=== PATIENT | male | born 1950 | race Caucasian/White ===

== ENCOUNTER 2023-06-22 08:06 | Outpatient (AMB) | payer MEDICARE, MEDICAID, SELFPAY ==
--- NOTE | 2023-06-22 08:15 | A.OFFVIS_ITS ---
Intake Vital Signs 06/22/23 08:23 Height 5 ft 8 in Weight 173 lb BMI 26.3 BP 128/64 Blood Pressure Location Rt brachial Position Sitting Respiration 16 Pulse 84 Pulse Source Pulse Oximeter Pulse Oximetry (%) 96 Oxygen Delivery Method Room Air Intake Visit Reasons: E-LINUX SYSTEM ADMINISTRATOR: ? Demenia CONF Intake Note: Pt presents to the office for new patient evaluation for altered mental stated. Revenue Specialist Required: No Allergies No Known Allergies Allergy (Verified 06/22/23 08:16) HPI HPI Comments History of Present Illness Details 73y/o male with developmental delay come s here for evaluation of possible dementia.He lives chely [facility] with 24 hr staff. He is accompanied by Savage Daillo his PERSONAL COACH, Zaria Barragan staff from [facility] who help with history . ABout 6 mths ago he had some episodes of urinary incontinence ( UTI was ruled out ) which self resolved, mild change in behavior like leaving an activity , wearing pajamas etc.He is better now. He goes to a high functioning adult daycare and a very easy patient to take care of . He can dress himself, needs assistance with showers. He sleeps good. He can read and write. noticed that he is leaning to his left . MRI brain was nonfocal . [facility] Medical History Hyperlipidemia Osteopenia Major depression Coarse tremors Esophagitis Anxiety Eczema Developmental delay, borderline Cognitive disorder Extrapyramidal syndrome Family History Mother Alzheimer disease Father Lung cancer Social History Household Members: Other Alcohol intake: never Patient Tobacco Use Status: Never used Tobacco Physical Exam Vital Signs: Last Vital Signs Pulse 84 06/22/23 08:23 Resp 16 06/22/23 08:23 BP 128/64 06/22/23 08:23 Pulse Ox 96 06/22/23 08:23 Oxygen Delivery Method Room Air 06/22/23 08:23 BMI result Body Mass Index 26.3 Const General: cooperative, healthy appearing and comfortable Nutritional Appearance: average body habitus Orientation/consciousness: oriented to person Eyes Pupils: Equal, round and reactive pupils present Neuro Other: antecollis stooped Mild decreased facial expression and blink Mild postural tremors UE Increased tone R>L FFM mildly decreased foot taps mildly decreased Gait- stopped , slow small steps General: oriented to person Cranial nerves: Yes Facial sensation intact/muscles of mastication intact, Yes Equal, round and reactive pupils present, Yes Bilaterally intact EOM present, Yes Nystagmus not present and Yes Normal facial strength present Cognition (Neuro): abnormal cognition Motor exam (neuro): 5/5 motor strength present throughout Deep tendon reflexes (DTR's): Right triceps reflex intensity grade: 2+, Left triceps reflex intensity grade: 2+, Rt Biceps (C5, C6): 2+, Left biceps reflex i ntensity grade: 2+, Right brachioradialis reflex intensity grade: 2+, Left brachioradialis reflex intensity grade: 2+, Right patellar reflex intensity grade: 2+ and Left patellar reflex intensity grade: 2+ Coordination: [id number] test normal Orientation What is the (year) (season) (date) (day) (month)?: season Where are we (state) (county) (town or city) (hospital) (floor)?: town or city and hospital/clinic Registration Name of 3 unrelated objects clearly and slowly, then ask patient to repeat all 3 of them. (1st repeat determines score. Make sure they can repeat all three): object 1, object 2 and object 3 Attention & Calculation (CHOOSE ONE) Spell WORLD backwards (DLROW): 2 letters Language Show patient a wristwatch & ask what it is. Repeat for pencil.: watch and pencil Ask the patient to repeat the phrase 'No ifs, ands, or buts' after you.: correct Ask the patient to 'take a piece of paper with their right hand' 'fold paper in half' 'place paper on floor': take paper in right hand Give patient a blank piece of paper & ask to write a sentence. 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 Coding Level of Care Code New Pt Level 4 (33974) Diagnoses Extrapyramidal syndrome G25.9 Cognitive disorder F09
[2023-06-22 08:23] VITALS: BP 128/64; PULSE 84; RESP 16; O2SAT 96; BMI 26.3
== END 2023-06-22 09:04 | disposition home or self-care (01) ==
PROVIDERS: PCP Internal Medicine; Visit Provider Psychiatry & Neurology Neurology
DX: G25.9 Extrapyramidal and movement disorder, unspecified (principal); R41.89 Other symptoms and signs involving cognitive functions and awareness
CPT/HCPCS: 99204

== ENCOUNTER → 2023-06-22 08:06 | Outpatient (BNVA) | payer MEDICARE, MEDICAID, SELFPAY | PROVIDERS: PCP Internal Medicine; Visit Provider Psychiatry & Neurology Neurology | DX: G25.9 Extrapyramidal and movement disorder, unspecified (principal); F09 Unspecified mental disorder due to known physiological condition | CPT/HCPCS: 99202 ==

== ENCOUNTER 2024-06-20 07:55 | Outpatient (AMB) | payer MEDICARE, MEDICAID, SELFPAY ==
--- OUTSIDE RECORDS SUMMARY | 2024-06-20 07:58 | XMS_ITS | Continuity of Care Document ---
Author Organization [facility] Address [address] [place] [address]- Care Team Providers Care Pre Parole Counseling Aide Name Role Phone Jeremias Marina MD Primary Care Physician [phone] Encounter [facility] [place] Date(s): 05/01/24 - 05/31/24 [facility] [address] [place] [address]- Encounter Type: Triage Allergies, Adverse Reactions, Alerts No Known Medication Allergies Immunizations Given and Recorded Vaccine Date Status Refusal Reason tetanus/diphtheria/pertussis, acel(Tdap) 1 05/11/23 Given tetanus/diphtheria/pertussis, acel(Tdap) 09/08/12 Recorded [id number] 12y+ bivalent booster vax 02/01/22 Recorded influenza virus vaccine, inactivated 01/18/22 Cordell rded influenza virus vaccine, inactivated 02/13/21 Cordell rded influenza virus vaccine, inactivated 01/20/20 Cordell rded influenza virus vaccine, inactivated 02/04/19 Cordell rded influenza virus vaccine, inactivated 02/11/18 Cordell rded influenza virus vaccine, inactivated 12/24/16 Cordell rded influenza virus vaccine, inactivated 01/25/16 Cordell rded influenza virus vaccine, inactivated 01/20/15 Cordell rded influenza virus vaccine, inactivated 01/27/14 Cordell rded influenza virus vaccine, inactivated 01/25/13 Cordell rded influenza virus vaccine, inactivated 01/27/12 Cordell rded influenza virus vaccine, inactivated 01/19/11 Cordell rded influenza virus vaccine, inactivated 01/30/10 Cordell rded influenza virus vaccine, inactivated 01/15/09 Cordell rded influenza virus vaccine, inactivated 01/24/08 Cordell rded influenza virus vaccine, inactivated 02/09/07 Cordell rded influenza virus vaccine, inactivated 03/02/06 Cordell rded influenza virus vaccine, inactivated 02/24/05 Cordell rded SARS-CoV-2 (COVID-19) mRNA BNT-162b2 vac 01/27/21 Recorded SARS-CoV-2 (COVID-19) mRNA BNT-162b2 vac 05/24/20 Recorded SARS-CoV-2 (COVID-19) mRNA BNT-162b2 vac 04/29/20 Recorded zoster vaccine, inactivated 06/19/20 Recorded zoster vaccine, inactivated 03/21/20 Recorded hepatitis B adult vaccine 10/10/15 Recorded hepatitis B adult vaccine 05/27/15 Recorded hepatitis B adult vaccine 04/23/15 Recorded hepatitis B adult vaccine 03/11/09 Recorded hepatitis B adult vaccine 10/08/08 Recorded hepatitis B adult vaccine 09/07/08 Recorded hepatitis B adult vaccine 11/18/06 Recorded hepatitis B adult vaccine 06/17/06 Recorded hepatitis B adult vaccine 05/20/06 Recorded hepatitis B adult vaccine 06/25/04 Recorded hepatitis B adult vaccine 01/25/04 Recorded hepatitis B adult vaccine 12/27/03 Recorded pneumococcal 23-valent vaccine 05/27/15 Recorded pneumococcal 13-valent vaccine 05/02/14 Recorded Zoster Vaccine Live 03/04/12 Recorded tetanus-diphtheria toxoids (Td) 12/27/03 Recorded 1Result Comment: [id number] Medications acetaminophen 325 mg oral tablet 650 mg, 2, tablet, By Mouth, Every 6 hours, PRN, # 100 tablet, Refills 1, Tot. Refills 1, Maintenance, discomfort/temp above 100.5 PO, 07/23/23 5:57:00 PM EDT, Route to Pharmacy Electronically, [facility], Partial fill upon patient request if the prescription is for a schedule II opioid drug.,174, cm, 05/11/23 9:11:00 EST, Height, 75.9, kg, 05/11/23 9:11:00 EST, Dry Weight Start Date: 07/23/23 Status: Ordered Quantity: 100.0 Unit: tablet Repeat number: 2 atorvastatin 20 mg oral tablet 1 tablet, By Mouth, Daily at bedtime, for cholesterol., # 30 Unknown, 11 Refills, Maintenance, 12/17/23 2:45:00 PM EDT, [facility], 178, cm, 12/15/23 11:02:00 EDT, Height, 75, kg, 11/21/23 15:43:00 EDT, Dry Weight Start Date: 12/17/23 Status: Ordered Quantity: 30.0 Unit: Unknown Repeat number: 12 bacitracin topical 500 u/gm ointment See Instructions, Apply thin layer topically to affected area every 12 hours as needed for superficial breaks in the skin. Notify HCP if no improvement in 3 days, # 30 Gm, 0 Refills, Maintenance, 02/25/24 1:41:00 PM EST, Ointment, [facility], Partial fill upon patient request if the prescription is for a schedule II opioid drug., Apply thin layer topically to affected area every 12 hours asneeded for superficial breaks in the skin. Notify HCP if no improvement in 3 days, 178, cm, 02/23/24 9:01:00 EST, Height, 75, kg, 11/21/23 15:43:00 EDT, Dry Weight Start Date: 02/25/24 Status: Ordered Quantity: 30.0 Unit: g Repeat number: 1 bisacodyl 10 mg rectal suppository See Instructions, Unwrap & insert 1 suppository (10mg) rectally as needed on the 4th day ofno bowel movement (for constipation), # 12 Unknown, 3 Refills, Maintenance, 03/12/23 1:38:00 PM EST, [facility], 174, cm, 12/08/22 11:04:00 EDT, Height, 81.1, kg, 06/02/22 8:34:00 EST, Dry Weight Start Date: 03/12/23 Status: Ordered Quantity: 12.0 Unit: Unknown Repeat number: 1 calcium-vitamin D 600 mg-400 intl units oral tablet 1 tablet, By Mouth, 2 times a day, for osteopenia., # 60 Unknown, 11 Refills, Maintenance, 12/17/23 2:45:00 PM EDT, [facility], 30, 1 tablet By Mouth 2 times a day,Instr:for osteopenia., 178, cm, 12/15/23 11:02:00 EDT, Height, 75, kg, 11/21/23 15:43:00 EDT, Dry Weight Start Date: 12/17/23 Status: Ordered Quantity: 60.0 Unit: Unknown Repeat number: 12 carbamide peroxide 6.5% otic solution See Instructions, 4 drops prn BID x5d for excessive earwax, # 30 mL, 11 Refills, Maintenance, 03/02/24 2:12:00 PM EST, Otic Solution, [facility], Partial fill upon patient request if the prescription is for a schedule II opioid drug., 4 drops prn BID x5d for excessive earwax, 178, cm, 02/23/24 9:01:00 EST, Height, 75, kg, 11/21/23 15:43:00 EDT, Dry Weight Start Date: 03/02/24 Status: Ordered Quantity: 30.0 Unit: mL Repeat number: 12 Cogentin Tablet 0.5 mg, By Mouth, Daily at bedtime, Refills 0, Maintenance, 12/20/17 3:30:05 PM EDT Start Date: 12/20/17 Status: Ordered Repeat number: 1 docusate sodium 100 mg oral capsule 1 capsule, By Mouth, 2 times a day, hold for loose stools (for stool softener), # 60 Unknown, 11 Refills, Maintenance, 12/17/23 2:45:00 PM EDT, [facility], 178, cm, 12/15/23 11:02:00 EDT, Height, 75, kg, 11/21/23 15:43:00 EDT, Dry Weight Start Date: 12/17/23 Status: Ordered Quantity: 60.0 Unit: Unknown Repeat number: 12 glycerin/petrolatum/phenylephrine/pramoxine 14.4%-15%-0.25%-1% rectal cream See Instructions, Apply small amount rectally three times daily as needed for hemorrhoids, # 28 Unknown, 0 Refills, Maintenance, 03/12/23 1:38:00 PM EST, [facility], 28, Apply small amount rectally three times daily as needed for hemorrhoids, 174, cm, 12/08/22 11:04:00 EDT, Height, 81.1, kg,06/02/22 8:34:00 EST, Dry Weight Start Date: 03/12/23 Status: Ordered Quantity: 28.0 Unit: Unknown Repeat number: 1 guaiFENesin 100 mg/5 mL oral liquid See Instructions, Give 10ml (200mg) by mouth every 6 hours as needed for cough. contact hcp if cough persists longer than 3 days. not to exceed 4 doses/24 hours, # 120 Unknown, 11 Refills, Maintenance, 02/25/24 1:41:00 PM EST, [facility], 178, cm, 02/23/24 9:01:00 EST, Height, 75, kg, 11/21/23 15:43:00 EDT, Dry Weight Start Date: 02/25/24 Status: Ordered Quantity: 120.0 Unit: Unknown Repeat number: 12 hydrocortisone 1% topical cream See Instructions, Apply thin layer topically to affected facial areas twice daily (every 12 hours) as needed for dry patches. notify hcp if no improvement in 1 week, # 28 Unknown, 5 Refills, Maintenance, 03/12/23 1:38:00 PM EST, [facility], 28, Apply thin layer topically to affected facial areas twice daily (every 12 hours) as needed for dry patches. notify hcp if no improvement in 1 week,174, cm, 12/08/22 11:04:00 EDT, Height, 81.1, kg, 06/02/22 8:34:00 EST, Dry Weight Start Date: 03/12/23 Status: Ordered Quantity: 28.0 Unit: Unknown Repeat number: 1 Milk of Magnesia 8% oral suspension See Instructions, 30ml PO prn on 3rd day of no bowel movement, # 360 mL, 3 Refills, Maintenance, 12/14/23 10:15:00 PM EDT, Suspension, [facility], Partial fill upon patient request if the prescription is for a schedule II opioid drug., 178, cm, 11/21/23 15:43:00 EDT, Height, 75, kg, 11/21/23 15:43:00 EDT, Dry Weight Start Date: 12/14/23 Status: Ordered Quantity: 360.0 Unit: mL Repeat number: 4 mometasone 0.1% topical cream See Instructions, Apply thin layer topically to affected areas of red patches twice daily (every 12hours) as needed for dry skin/eczema. do not apply to face. use before triamcinolone, # 45 Unknown,11 Refills, Maintenance, 02/25/24 1:41:00 PM EST, [facility], 30, Apply thin layer topically to affected areas of red patches twice daily (every 12 hours) as needed for dry skin/eczema. do not a pply to face. use before triamcinolone, 178, cm, 02/23/24 9:01:00 EST, Height, 75, kg, 11/21/23 15:43:00 EDT, Dry Weight Start Date: 02/25/24 Status: Ordered Quantity: 45.0 Unit: Unknown Repeat number: 12 Mylanta Maximum Strength oral suspension 5 mL, By Mouth, 4 times a day, PRN as needed for indigestion, Not to exceed 4 doses/24 hours, notify nursing if no relief from 4 doses, # 200 mL, 11 Refills, Maintenance, 02/25/24 1:41:00 PM EST, Suspension, [facility], Partial fill upon patient request if the prescription is for a schedule II opioid drug., 5 mL By Mouth 4 times a day,PRN:as needed for indigestion,Instr:Not to exceed 4 doses /24 hours, notify nursing if no relief from 4 doses, 178, cm, 02/23/24 9:01:00 EST, Height, 75, kg,11/21/23 15:43:00 EDT, Dry Weight Start Date: 02/25/24 Status: Ordered Quantity: 200.0 Unit: mL Repeat number: 12 omeprazole 20 mg oral enteric coated capsule 1 capsule, By Mouth, Daily in AM, for gerd., # 30 Unknown, 11 Refills, Maintenance, 12/14/23 8:45:00AM EDT, [facility], 178, cm, 11/21/23 15:43:00 EDT, Height, 75, kg, 11/21/23 15:43:00 EDT, Dry Weight Start Date: 12/14/23 Status: Ordered Quantity: 30.0 Unit: Unknown Repeat number: 12 Preparation H Cream 0 Refills, Maintenance, 12/09/21 2:20:00 PM EDT, Partial fill upon patient request if the prescription is for a schedule II opioid drug. Start Date: 12/09/21 Status: Ordered Repeat number: 1 Reguloid 400 mg oral capsule 1 capsule, By Mouth, Daily in AM, for laxative., # 30 Unknown, 11 Refills, Maintenance, 12/17/23 2:45:00 PM EDT, [facility], 178, cm, 12/15/23 11:02:00 EDT, Height, 75, kg, 11/21/23 15:43:00 EDT, Dry Weight Start Date: 12/17/23 Status: Ordered Quantity: 30.0 Unit: Unknown Repeat number: 12 Remeron 45 mg oral tablet 1 tablet = 45 mg, By Mouth, Daily at bedtime, 0 Refills, Maintenance, 12/20/17 3:29:16 PM EDT Start Date: 12/20/17 Status: Ordered Repeat number: 1 RisperDAL 0.5 mg oral tablet 0.5 mg, 1, tablet, By Mouth, 2 times a day, Refills 0, Maintenance, 12/20/17 3:29:42 PM EDT Start Date: 12/20/17 Status: Ordered Repeat number: 1 triamcinolone 0.1% topical cream See Instructions, Apply thin layer topically to affected area of red, patchy, dry skin every 12 hours as needed for eczema. do not apply on face. call hcp if no improvement in 3 days. use with mometasone., # 80 Unknown, 1 Refills, Maintenance, 02/25/24 1:41:00 PM EST, [facility], 30, Apply thin layer topically to affected area of red, patchy, dry skin every 12 hours as needed for eczema. donot apply on face. call hcp if no improvement in 3 days. use with mometasone., 178, cm, 02/23/24 9:01:00 EST, Height, 75, kg, 11/21/23 15:43:00 EDT, Dry Weight Start Date: 02/25/24 Status: Ordered Quantity: 80.0 Unit: Unknown Repeat number: 2 Problem List Condition Confirmation Course Effective Dates Status H ealth Status Informant Developmental delay Confirmed Active Eczema Confirmed Active Generalized anxiety disorder Confirmed Active History of tremor; Dr Joy, no rx needed Confirmed Active History of esophagitis Confirmed Active PPD positive, treated Confirmed Active Microscopic hematuria; seen by urology Confirmed Active Mixed hyperlipidemia Confirmed Active Osteopenia; 06/12 FRAX 7.6%/2.3% Confirmed Active Severe major depression Confirmed Active Social History Social History Type Response Smoking Status Never (less than 100 in lifetime) entered on: 12/16/21 Sex Male Sex Representation Male (finding) Patient Care team information Care Team Personnel Name: Jeremias Marina MD Position: [facility] Physician - Primary Care Member Role: PCP Address: [address] [place] [address] Telecom: Care Team Related Persons Name: LUC MICHELLE Name: ROB MARIE Insurance Providers Guarantor name: DEXTER HARDIN Health Plan Information #: 1 Payer: MEDICARE PART B OUTPT Member Number: NA Policy Number: NA Group Number: NA Health Plan Information #: 2 Payer: [facility] Member Number: NA Policy Number: NA Group Number: NA
--- OUTSIDE RECORDS SUMMARY | 2024-06-20 07:58 | XMS_ITS | Continuity of Care Document ---
Author Organization [facility] Address [address] [place] [address]- Care Team Providers Care Broadcasting Equipment Mechanic Name Role Phone Jeremias Marina MD Primary Care Physician Encounter [facility] NBR [id number] Date(s): 05/25/24 - 05/25/[address] [address]- Discharge Disposition: A-D/C Home Attending Physician: Ginette Kwok DO Admitting Physician: Ginette Kwok DO Referring Physician: Not on Staff, Referring MD Encounter Type: Disch ES Allergies, Adverse Reactions, Alerts No Known Medication Allergies Immunizations Given and Recorded Vaccine Date Status Refusal Reason tetanus/diphtheria/pertussis, acel(Tdap) 1 05/11/23 Given tetanus/diphtheria/pertussis, acel(Tdap) 09/08/12 Recorded [id number] 12y+ bivalent booster vax 02/01/22 Recorded influenza [...] 01/19/11 Cordell rded influenza virus vaccine, inactivated 10/14/10 Cordell rded influenza virus vaccine, inactivated 01/15/09 [...] tetanus-diphtheria toxoids (Td) 12/27/03 Recorded 1Result Comment: [id number] Medications acetaminophen 325 mg oral tablet 650 mg, 2, tablet, By Mouth, Every 6 hours, PRN, # 100 tablet, Refills 1, Tot. Refills 1, Maintenance, discomfort/temp above 100.5 PO, 07/23/23 5:57:00 PM EDT, Route to Pharmacy Electronically, [facility], Partial fill upon patient request [...] 11 Refills, Maintenance, 12/17/23 2:45:00 PM EDT, [facility], 178, cm, 12/15/23 11:02:00 EDT, Height, [...] Refills, Maintenance, 02/25/24 1:41:00 PM EST, Ointment, [facility], Partial fill upon patient request [...] 3 Refills, Maintenance, 03/12/23 1:38:00 PM EST, [facility], 174, cm, 12/08/22 11:04:00 EDT, Height, 81.1, kg, 06/02/22 8:34:00 EST, Dry Weight Start Date: 03/12/23 Status: Ordered Quantity: 12.0 Unit: Unknown Repeat number: 1 calcium-vitamin D 600 mg-400 intl units oral tablet 1 tablet, By Mouth, 2 times a day, for osteopenia., # 60 Unknown, 11 Refills, Maintenance, 12/17/23 2:45:00 PM EDT, [facility], 30, 1 tablet By Mouth [...] Maintenance, 03/02/24 2:12:00 PM EST, Otic Solution, [facility], Partial fill upon patient request [...] 11 Refills, Maintenance, 12/17/23 2:45:00 PM EDT, [facility], 178, cm, 12/15/23 11:02:00 EDT, Height, 75, kg, 11/21/23 15:43:00 EDT, Dry Weight Start Date: 12/17/23 Status: Ordered Quantity: 60.0 Unit: Unknown Repeat number: 12 glycerin/petrolatum/phenylephrine/pramoxine 14.4%-15%-0.25%-1% rectal cream See Instructions, Apply small amount rectally three times daily as needed for hemorrhoids, # 28 Unknown, 0 Refills, Maintenance, 03/12/23 1:38:00 PM EST, [facility], 28, Apply small amount rectally [...] 11 Refills, Maintenance, 02/25/24 1:41:00 PM EST, [facility], 178, cm, 02/23/24 9:01:00 EST, [...] 5 Refills, Maintenance, 03/12/23 1:38:00 PM EST, [facility], 28, Apply thin layer topically [...] Refills, Maintenance, 12/14/23 10:15:00 PM EDT, Suspension, [facility], Partial fill upon patient request [...] Unknown,11 Refills, Maintenance, 02/25/24 1:41:00 PM EST, [facility], 30, Apply thin layer topically [...] Refills, Maintenance, 02/25/24 1:41:00 PM EST, Suspension, [facility], Partial fill upon patient request [...] Unknown, 11 Refills, Maintenance, 12/14/23 8:45:00AM EDT, [facility], 178, cm, 11/21/23 15:43:00 EDT, Height, 75, [...] 11 Refills, Maintenance, 12/17/23 2:45:00 PM EDT, [facility], 178, cm, 12/15/23 11:02:00 EDT, Height, [...] 1 Refills, Maintenance, 02/25/24 1:41:00 PM EST, [facility], 30, Apply thin layer topically [...] Confirmed Active Severe major depression Confirmed Active Results Radiology Reports * Exam Date Time Procedure Performing Provider Status 05/25/24 3:28 PM Chest 2 Views Frontal and Lat Aj Garcia; Auth (Verified) Notes: (Chest 2 Views Frontal and Lat) Reason For Exam: Cough RESULT: Chest 2 Views Frontal and Lat Chest 2 Views Frontal and Lat Hx of Present Illness: fever, weakness noiced by staff. low O2; Reason: Cough; Clinical Question(s): Pneumonia COMPARISON: 08/19/2015 FINDINGS: LINES AND TUBES: None. LUNGS AND PLEURA: Chronic left lung volume loss with hyperinflation of the right lung, unchanged. Biapical pleural thickening/scarring similar to prior study. Normal pulmonary vascularity. No focal consolidation. No pleural effusion. No pneumothorax. HEART, MEDIASTINUM AND DAVID: Heart is normal in size. Large paraesophageal hernia is noted. BONES AND SOFT TISSUES: No acute abnormality. IMPRESSION: No x-ray findings of pneumonia. No edema or effusions. Chronic left lung volume loss and hyperinflation of the right lung. Large paraesophageal hernia. WSN: [id number] Ordering Physician: Ginette Kwok Dictated By: Santos Khoury MD Dictated Date/Time: 05/25/24 3:27 pm Reviewed By: Santos Khoury MD Signed By: Santos Khoury MD Signed Date/Time: 05/25/24 3:27 pm Transcribed By: ARCADIO Transcribed Date/Time: 05/25/24 3:26 pm Vital Signs Most recent to oldest [Reference Range]: 1 2 Height 175 cm (05/25/24 6:13 PM) 175 cm (05/25/24 2:23 PM) Weight 75.5 kg (05/25/24 6:13 PM) 75.5 kg (05/25/24 2:23 PM) Oxygen Saturation [94-100 %] 95 % (05/25/24 6:13 PM) 96 % (05/25/24 2:13 PM) Pulse Rate [55-90 bpm] 85 bpm (05/25/24 6:13 PM) 86 bpm (05/25/24 2:23 PM) Body Mass Index [18.5-24.99 kg/m2] 24.65 kg/m2 (05/25/24 6:13 PM) Blood Pressure [90-138/55-84 mm Hg] 139/ 66mm Hg *H* (05/25/24 6:13 PM) 120/55mm Hg (05/25/24 2:23 PM) Respiratory Rate [16-30 br/min] 18 br/mi n (05/25/24 6:13 PM) Temperature [96.8-100.4 DegF] 99.0 DegF (05/25/24 6:13 PM) 99.3 DegF (05/25/24 2:23 PM) Liters per Minute 2 L/min (05/25/24 2:13 PM) Mode of Delivery (Oxygen) Room air (05/25/24 6:13 PM) Room air (05/25/24 2:13 PM) Blood pressure sites Arm, left (05/25/24 6:13 PM) Arm, left (05/25/24 2:23 PM) Temperature Route Oral (05/25/24 6:13 PM) Oral (05/25/24 2:23 PM) Dry Weight 75.5 kg (05/25/24 6:13 PM) 75.5 kg (05/25/24 2:23 PM) Weight Obtained Via Patient/family state d (05/25/24 2:23 PM) Social History Social History Type Response Smoking Status Never (less than 100 in lifetime) entered on: 12/16/21 Sex Male Sex Representation Male (finding) Patient Care team information Care Team Personnel Name: Jeremias Marina MD Position: [facility] Physician - Primary Care Member Role: PCP Address: [address] [place] [address] Telecom: Care Team Related Persons Name: LUC MICHELLE Name: ROB MARIE Insurance Providers Guarantor name: DEXTER ZHANGCecy Health Plan Information #: 2 Payer: [employer] Member Number: [id number] Policy Number: NA Group Number: NA Health Plan Information #: 1 Payer: MEDICARE PART B OUTPT Member Number: [id number] Policy Number: NA Group Number: NA
--- OUTSIDE RECORDS SUMMARY | 2024-06-20 07:58 | XMS_ITS | Continuity of Care Document ---
Author Organization [facility] Address [address] [place] [address]- Care Team Providers Care Data Reporting Analyst Name Role Phone Jeremias Marina MD Primary Care Physician Encounter [facility] Date(s): 04/28/24 - 05/28/24 [facility] [address] [place] [address]- Encounter Type: Triage Allergies, Adverse Reactions, Alerts No Known Medication Allergies Immunizations Given and Recorded Vaccine Date Status Refusal Reason tetanus/diphtheria/pertussis, acel(Tdap) 1 05/11/23 Given tetanus/diphtheria/pertussis, acel(Tdap) 09/08/12 Recorded [id number] 12y+ bivalent booster vax 02/01/22 Recorded influenza [...] tetanus-diphtheria toxoids (Td) 12/27/03 Recorded 1Result Comment: [id number] Medications acetaminophen 325 mg oral tablet 650 mg, 2, tablet, By Mouth, Every 6 hours, PRN, # 100 tablet, Refills 1, Tot. Refills 1, Maintenance, discomfort/temp above 100.5 PO, 07/23/23 5:57:00 PM EDT, Route to Pharmacy Electronically, [facility], Partial fill upon patient request if the [...] Refills, Maintenance, 02/25/24 1:41:00 PM EST, Ointment, [facility], Partial fill upon patient request if the [...] 3 Refills, Maintenance, 03/12/23 1:38:00 PM EST, [facility], 174, cm, 12/08/22 11:04:00 EDT, Height, 81.1, kg, 06/02/22 8:34:00 EST, Dry Weight Start Date: 03/12/23 Status: Ordered Quantity: 12.0 Unit: Unknown Repeat number: 1 calcium-vitamin D 600 mg-400 intl units oral tablet 1 tablet, By Mouth, 2 times a day, for osteopenia., # 60 Unknown, 11 Refills, Maintenance, 12/17/23 2:45:00 PM EDT, [facility], 30, 1 tablet By Mouth [...] Maintenance, 03/02/24 2:12:00 PM EST, Otic Solution, [facility], Partial fill upon patient request [...] 11 Refills, Maintenance, 12/17/23 2:45:00 PM EDT, [facility], 178, cm, 12/15/23 11:02:00 EDT, Height, 75, kg, 11/21/23 15:43:00 EDT, Dry Weight Start Date: 12/17/23 Status: Ordered Quantity: 60.0 Unit: Unknown Repeat number: 12 glycerin/petrolatum/phenylephrine/pramoxine 14.4%-15%-0.25%-1% rectal cream See Instructions, Apply small amount rectally three times daily as needed for hemorrhoids, # 28 Unknown, 0 Refills, Maintenance, 03/12/23 1:38:00 PM EST, [facility], 28, Apply small amount rectally [...] 11 Refills, Maintenance, 02/25/24 1:41:00 PM EST, [facility], 178, cm, 02/23/24 9:01:00 EST, [...] 5 Refills, Maintenance, 03/12/23 1:38:00 PM EST, [facility], 28, Apply thin layer topically [...] Refills, Maintenance, 12/14/23 10:15:00 PM EDT, Suspension, [facility], Partial fill upon patient request if the [...] Unknown,11 Refills, Maintenance, 02/25/24 1:41:00 PM EST, [facility], 30, Apply thin layer topically [...] Refills, Maintenance, 02/25/24 1:41:00 PM EST, Suspension, [facility], Partial fill upon patient request [...] Unknown, 11 Refills, Maintenance, 12/14/23 8:45:00AM EDT, [facility], 178, cm, 11/21/23 15:43:00 EDT, [...] 1 Refills, Maintenance, 02/25/24 1:41:00 PM EST, [facility], 30, Apply thin layer topically [...] Team Personnel Name: Jeremias Marina MD Position: [facility] Physician - Primary Care Member Role: PCP Address: [address] [place] [address] Telecom: Care Team Related Persons Name: LUC MICHELLE Name: ROB MARIE Insurance Providers Guarantor name: DEXTER HARDIN Health Plan Information #: 1 Payer: MEDICARE PART B OUTPT Member Number: NA Policy Number: NA Group Number: NA Health Plan Information #: 2 [facility] Member Number: NA Policy Number: NA Group Number: NA
--- OUTSIDE RECORDS SUMMARY | 2024-06-20 07:58 | XMS_ITS | Continuity of Care Document ---
Author Organization [facility] Address [address] [place] [address]- Care Team Providers Care All Round Butcher Name Role Phone Jeremias Marina MD Primary Care Physician [phone] [id number] Date(s): 06/02/24 - 06/09/24 [facility] [address], [place] [address] Encounter Diagnosis Physical exam(Discharge Diagnosis) - 06/02/24 Anemia(Discharge Diagnosis) - 06/02/24 Change in behavior(Discharge Diagnosis) - 06/02/24 Attending Physician: Jeremias Marina MD Encounter Type: Office Visit Allergies, Adverse Reactions, Alerts No Known Medication Allergies Immunizations Given and Recorded Vaccine Date Status Refusal Reason RSV vaccine, preF A-preF B, recombinant 02/21/24 R ecorded influenza virus vaccine, inactivated 02/08/24 Cordell rded influenza virus vaccine, inactivated 01/18/22 Cordell rded [...] influenza virus vaccine, inactivated 02/24/05 Cordell rded SARS-CoV-2(COVID-19)mRNA-LNP vac([id number]) 02/08/24 Recorded tetanus/diphtheria/pertussis, acel(Tdap) 1 05/11/23 Given tetanus/diphtheria/pertussis, acel(Tdap) 09/08/12 Recorded [id number] 12y+ bivalent booster vax 02/01/22 Recorded SARS-CoV-2 (COVID-19) mRNA BNT-162b2 vac 01/27/21 Recorded [...] tetanus-diphtheria toxoids (Td) 12/27/03 Recorded 1Result Comment: [id number] Medications acetaminophen 325 mg oral tablet 650 mg, 2, tablet, By Mouth, Every 6 hours, PRN, # 100 tablet, Refills 1, Tot. Refills 1, Maintenance, discomfort/temp above 100.5 PO, 07/23/23 5:57:00 PM EDT, Route to Pharmacy Electronically, [facility], Partial fill upon patient request if the prescription is for a schedule II opioid drug.,174, cm, 05/11/23 9:11:00 EST, Height, 75.9, kg, 05/11/23 9:11:00 EST, Dry Weight Start Date: 07/23/23 Status: Ordered Quantity: 100.0 Unit: tablet Repeat number: 2 atorvastatin 20 mg oral tablet 1 tablet, By Mouth, Daily at bedtime, for cholesterol., # 30 Unknown, 11 Refills, Maintenance, 12/17/23 2:45:00 PM EDT, [facility], 178, cm, 12/15/23 11:02:00 EDT, Height, 75, [...] days, # 30 Gm, 0 Refills, Maintenance, 06/08/24 1:35:00 PM EST, Ointment, [facility], Partial fill upon patient request if the prescription is for a schedule II opioid drug., Apply thin layer topically to affected area every 12 hours asneeded for superficial breaks in the skin. Notify HCP if no improvement in 3 days, 165.2, cm, 06/02/24 9:25:00 EST, Height, 71.5, kg, 06/02/24 9:25:00 EST, Dry Weight Start Date: 06/08/24 Status: Ordered Quantity: 30.0 Unit: g Repeat number: 1 bisacodyl 10 mg rectal suppository See Instructions, Unwrap & insert 1 suppository (10mg) rectally as needed on the 4th day ofno bowel movement (for constipation), # 12 Unknown, 3 Refills, Maintenance, 03/12/23 1:38:00 PM EST, [facility], 174, cm, 12/08/22 11:04:00 EDT, Height, 81.1, kg, 06/02/22 8:34:00 EST, Dry Weight Start Date: 03/12/23 Status: Ordered Quantity: 12.0 Unit: Unknown Repeat number: 1 calcium-vitamin D 600 mg-400 intl units oral tablet 1 tablet, By Mouth, 2 times a day, for osteopenia., # 60 Unknown, 11 Refills, Maintenance, 12/17/23 2:45:00 PM EDT, [facility], 30, 1 tablet By Mouth 2 times a day,Instr:for osteopenia., 178, cm, 12/15/23 11:02:00 EDT, Height, 75, kg, 11/21/23 15:43:00 EDT, Dry Weight Start Date: 12/17/23 Status: Ordered Quantity: 60.0 Unit: Unknown Repeat number: 12 carbamide peroxide 6.5% otic solution See Instructions, 4 drops prn BID x5d for excessive earwax, # 30 mL, 11 Refills, Maintenance, 03/02/24 2:12:00 PM EST, Otic Solution, [facility], Partial fill upon patient request if the [...] 11 Refills, Maintenance, 12/17/23 2:45:00 PM EDT, [facility], 178, cm, 12/15/23 11:02:00 EDT, Height, 75, kg, 11/21/23 15:43:00 EDT, Dry Weight Start Date: 12/17/23 Status: Ordered Quantity: 60.0 Unit: Unknown Repeat number: 12 glycerin/petrolatum/phenylephrine/pramoxine 14.4%-15%-0.25%-1% rectal cream See Instructions, Apply small amount rectally three times daily as needed for hemorrhoids, # 28 Unknown, 0 Refills, Maintenance, 03/12/23 1:38:00 PM EST, [facility], 28, Apply small amount rectally three [...] 11 Refills, Maintenance, 02/25/24 1:41:00 PM EST, [facility], 178, cm, 02/23/24 9:01:00 EST, Height, [...] 5 Refills, Maintenance, 03/12/23 1:38:00 PM EST, [facility], 28, Apply thin layer topically to [...] Refills, Maintenance, 12/14/23 10:15:00 PM EDT, Suspension, [facility], Partial fill upon patient request if the [...] Unknown,11 Refills, Maintenance, 02/25/24 1:41:00 PM EST, [facility], 30, Apply thin layer topically to [...] Refills, Maintenance, 02/25/24 1:41:00 PM EST, Suspension, [facility], Partial fill upon patient request if [...] Unknown, 11 Refills, Maintenance, 12/14/23 8:45:00AM EDT, [facility], 178, cm, 11/21/23 15:43:00 EDT, Height, [...] 11 Refills, Maintenance, 12/17/23 2:45:00 PM EDT, [facility], 178, cm, 12/15/23 11:02:00 EDT, Height, [...] 1 Refills, Maintenance, 02/25/24 1:41:00 PM EST, [facility], 30, Apply thin layer topically to [...] anxiety disorder Confirmed Active History of tremor; was seen by Dr Joy, no rx needed Confirmed Active History of esophagitis Confirmed Active PPD positive, treated Confirmed Active Microscopic hematuria; seen by urology Confirmed Active Mixed hyperlipidemia Confirmed Active Osteopenia; 06/12 FRAX 7.6%/2.3% Confirmed Active Severe major depression Confirmed Active Diagnosis Diagnosis Type Effective Dates Health Status Cl inical Service Informant Anemia Discharge Diagnosis 06/02/24 Change in behavior Discharge Diagnosis 06/02/24 Physical exam Discharge Diagnosis 06/02/24 Vital Signs Most recent to oldest [Reference Range]: 1 Height 165.2 cm (06/02/24 9:25 AM) Weight 71.5 kg (06/02/24 9:25 AM) Oxygen Saturation [94-100 %] 98 % (06/02/24 9:25 AM) Pulse Rate [55-90 bpm] 81 bpm (06/02/24 9:25 AM) Body Mass Index [18.5-24.99 kg/m2] 26.2 kg/m2 *H* (06/02/24 9:25 AM) Blood Pressure [90-138/55-84 mm Hg] 122/ 60mm Hg (06/02/24 9:25 AM) Mode of Delivery (Oxygen) Room air (06/02/24 9:25 AM) Blood pressure sites Arm, right (06/02/24 9:25 AM) Dry Weight 71.5 kg (06/02/24 9:25 AM) Weight Obtained Via Standing scale (06/02/24 9:25 AM) Dry Weight Obtained Via Standing scale (06/02/24 9:25 AM) Social History Social History Type Response Smoking Status Never (less than 100 in lifetime) entered on: 12/16/21 Sex Male Sex Representation Male (finding) Note * Maria R Miranda: PERFORM Event Display: Patient Education/Instruction Authored Date: Ambulatory Adult Visit Summary [facility] [address] [place] [address] Name: DEXTER HARDIN : 1950?? Visit: 06/02/2024 09:17?? Ambulatory Visit Instructions ?? Your Care Team Primary Care Provider Jeremias Marina MD? This Visit Provider Jeremias Marina MD Your Diagnosis Anemia Change in behavior Mixed hyperlipidemia Vitals Signs Pulse Rate: 81 bpm Height: 165.2 cm Systolic Blood Pressure: 122 mm Hg Weight: 71.5 kg Diastolic Blood Pressure: 60 mm Hg Body Mass Index:??26.2 kg/m2??High Oxygen Saturation: 98 % Body surface area: 1.81 What to do next Future Orders CBC - Routine, Once, 06/02/24 10:07:00 EST, Order for Today, [facility], Blood?? Comprehensive Metabolic Panel - Routine, Once, 06/02/24 10:07:00 EST, Order for Today, [facility], Blood?? TSH - Routine, Once, 06/02/24 10:07:00 EST, Order for Today, [facility], Blood?? Vitamin B12 Level (B12 Vitamin Level) - Routine, Once, 06/02/24 10:07:00 EST, Order for Today, [facility], Blood?? Lipid Panel Non Fasting - Routine, Once, 06/02/24 10:07:00 EST, Order for Today, [facility], Blood?? Medications The list below reflects the information in our records and provided by you today along with any changes made during this visit. Please continue your medications until treatment is completed or stopped by your provider. If this is different from the information you have or there are other questions,please contact the prescribing provider. What How Much When Instructions Unchanged Acetaminophen (acetaminophen 325 mg oral tablet) 2 tab(s) Oral Every 6 hours as needed for discomfort/temp above 100.5 PO Unchanged Al Hydroxide/ Mg Hydroxide/ Simethicone (Mylanta Maximum Strength oral suspension) 5 Milliliter Oral 4 times a day as needed for as needed for indigestion Not to exceed 4 doses/ 24 hours, notify nursing if no relief from 4 doses ?? Unchanged Atorvastatin (atorvastatin 20 mg oral tablet) 1 tab(s) Oral Daily at Bedtime for cholesterol. ?? Unchanged Bacitracin Topical (bacitracin topical 500 u/ gm ointment) See instructions Apply thin layer topically to affected area every 12 hours as needed for superficial breaks in the skin. Notify HCP if no improvement in 3 days ?? Unchanged Benztropine (Cogentin Tablet) 0.5 Milligram Oral Daily at Bedtime Unchanged Bisacodyl (bisacodyl 10 mg rectal suppository) See instructions Unwrap & insert 1 suppository (10mg) rectally as needed on the 4th day of no bowel movement(for constipation) ?? Unchanged Calcium And Vitamin D Combination (calcium-vitamin D 600 mg-400 intl units oral tablet) 1 tab(s) Oral Twice a day for osteopenia. ?? Unchanged Carbamide Peroxide Otic (carbamide peroxide 6.5% otic solution) See instructions 4 drops prn BID x5d for excessive earwax ?? Unchanged Docusate (docusate sodium 100 mg oral capsule) 1 capsule Oral Twice a day hold for loose stools (for stool softener) ?? Unchanged glycerin/ petrolatum/ PE/ pramoxine topical (glycerin/ petrolatum/ phenylephrine/ pramoxine 14.4%-15%-0.25%-1% rectal cream) See instructions Apply small amount rectally three times daily as needed for hemorrhoids ?? Unchanged Guaifenesin (guaiFENesin 100 mg/ 5 mL oral liquid) See instructions Give 10ml (200mg) by mouth every 6 hours as needed for cough. contact hcp if cough persists longer than 3 days. not to exceed 4 doses/ 24 hours ?? Unchanged Hydrocortisone Topical (hydrocortisone 1% topical cream) See instructions Apply thin layer topically to affected facial areas twice daily (every 12 hours) as needed for dry patches. notify hcp if no improvement in 1 week ?? Unchanged Milk of Magnesia (Milk of Magnesia 8% oral suspension) See instructions 30ml PO prn on 3rd day of no bowel movement ?? Unchanged Mirtazapine (Remeron 45 mg oral tablet) 1 tab(s) Oral Daily at Bedtime Unchanged Mometasone Topical (mometasone 0.1% topical cream) See instructions Apply thin layer topically to affected areas of red patches twice daily (every 12 hours) as needed for dry skin/ eczema. do not apply to face. use before triamcinolone ?? Unchanged Omeprazole (omeprazole 20 mg oral enteric coated capsule) 1 capsule Oral Daily in the morning for gerd. ?? Unchanged Phenylephrine-Pramoxine Topical (Preparation H Cream) Unchanged Psyllium (Reguloid 400 mg oral capsule) 1 capsule Oral Daily in the morning for laxative. ?? Unchanged Risperidone (RisperDAL 0.5 mg oral tablet) 1 tab(s) Oral Twice a day Unchanged Triamcinolone Topical (triamcinolone 0.1% topical cream) See instructions Apply thin layer topically to affected area of red, patchy, dry skin every 12 hours as needed for eczema. do not apply on face. call hcp if no improvement in 3 days. use with mometasone. ?? Test Performed Below is a partial list of the tests performed during your Visit. You may have had other tests and procedures not included in this list. Please discuss all test results with your provider. B12 Vitamin Level?-- Results Pending -- CBC?-- Results Pending -- Comprehensive Metabolic Panel?-- Results Pending -- Lipid Panel Non Fasting?-- Results Pending -- TSH?-- Results Pending -- Medications and Immunizations Administered Medications Given During Visit No medications given during this visit.?? Allergies (NKA means No Known Allergies) No Known Medication Allergies Common Emergency Awareness Tips IS IT A STROKE? Act FAST and Check for these signs: FACE Does the face look uneven? ARM Does one arm drift down? SPEECH Does their speech sound strange? TIME Call at any sign of stroke ?? Heart Attack Signs Chest discomfort: Most heart attacks involve discomfort in the center of the chest and lasts more than a few minutes, or goes away and comes back. It can feel like uncomfortable pressure, squeezing, fullness or pain. Discomfort in upper body: Symptoms can include pain or discomfort in one or both arms, back, neck, jaw or stomach. Shortness of breath: With or without discomfort. Other signs: Breaking out in a cold sweat, nausea, or lightheaded. Remember, MINUTES DO MATTER. If you experience any of these heart attack warning signs, call to get immediate medical attention! ?? Smoking can increase your chances of developing chronic health problems and can cause harmful effects to other family members in your house. If you smoke, you are strongly encouraged to quit. Please call [facility] Link at [phone] or [phone]) or log in to [email or web address] for referrals to smoking cessation programs. ?? The National Suicide Prevention Hotline is available 09/11 if you or someone you know needs to find a reason to keep living. By calling 7-934-285-sthl (2390) you'll be connected to a skilled, trained counselor at a crisis center in your area. [email or web address] Portal You can view and manage your care through the patient portal or by using a health care herbert of your choosing. [employer] is a website that allows you to securely view your medical information including your hospital discharge summary, office visit summaries, medications and follow-up visits. You can also request appointments, renew medications, and request access to your medical information using a health care herbert of your choosing, or just ask a question. You can enroll at [email or web address] or register during your next office visit. [facility], in keeping with [facility] guidance, no longer requires face masks for staff, patientsor visitors in most situations. Similiar to time spent indoors at other locations, there is the chance that you were exposed to repiratory viruses during your time with us (such as flu or COVID-19). If you develop symptoms concerning for a viral respiratory infection, please seek testing (and treatment if indicated) from your medical provider or home test kit. ?? Disclaimer: The information provided is of a general nature and is intended to be used in conjunction with the recommendations and advice of your health care practitioner. Every effort has been made to ensure that the information provided is accurate and complete at the time it is provided to you however, as your needs change, or, as new information becomes available, different or additional instructions may be required. ?? If you have questions, please consult with your primary care provider or pharmacist, as appropriate. This information is not intended to serve as substitution for assessment and evaluation by a qualified health care provider. If you do not have a primary care provider, you may find a [facility] provider by calling [email or web address] Link at [phone]. Patient Care team information Care Team Personnel Name: Jeremias Marina MD Position: [facility] Physician - Primary Care Member Role: PCP Address: [address] [place] [address] Telecom: Care Team Related Persons Name: LUC MICHELLE Name: ROB MARIE Insurance Providers Guarantor name: DEXTER [employer]ATHACecy Health Plan Information #: 2 Payer: [facility] Member Number: [id number] Policy Number: NA Group Number: NA Health Plan Information #: 1 Payer: MEDICARE PART B OUTPT Member Number: [id number] Policy Number: NA Group Number: NA
[2024-06-20 08:02] VITALS: BP 130/60; PULSE 80; O2SAT 97; BMI 24.2
--- NOTE | 2024-06-20 08:02 | A.OFFVIS_ITS ---
Vital Signs 06/20/24 08:02 Height 5 ft 8 in Weight 159 lb BMI 24.2 BP 130/60 Pulse 80 Pulse Source Pulse Oximeter Pulse Oximetry (%) 97 Oxygen Delivery Method Room Air Intake Visit Reasons: 1 yr F/U Intake Note: Patient presents follow up cognitive. Weight And Test Bar Clerk Required: No Accompanied by: Self / Same As Patient Allergies No Known Allergies Allergy (Verified 06/22/23 08:16) HPI Comments Details: The patient is a 74-year-old male presenting with cognitive difficulties. Patient is accompanied by his long-time nurse from his residential, who helps to provide history. Interval history includes a recurrent facial cellulitis with improvement following antibiotic and eczema treatment per [facility] ID Noted symptoms include changes such as leaning and unusual eating habits. Occasional urinary incontinence occurs during the day over the past two years- patient states occurs without warning- he does not have a urologist. Denies significant neurological symptoms. No hallucinations or swallowing issues. Behavioral changes include altered eating habits , such as not wanting to eat pizza for no apparent reason despite this being his favorite food. Current medications include stable regimen of risperidone and cogentin. Review of Systems - Neurologic: Denies numbness, tingling, or tremors. Reports leaning left and behavioral changes. - Respiratory: Denies shortness of breath. - Gastrointestinal: Denies abdominal pain or constipation. - Genitourinary: Reports urinary incontinence during the day. - Musculoskeletal: Denies back pain or stiffness. - Psychiatric: Denies hallucinations, mood is noted to be good. [facility] Medical History Hyperlipidemia Osteopenia Major depression Coarse tremors Esophagitis Anxiety Eczema Developmental delay, borderline Cognitive disorder Extrapyramidal syndrome Family History Mother Alzheimer disease Father Lung cancer Social History Household Members: Other Alcohol intake: never Patient Tobacco Use Status: Never used Tobacco Physical Exam Vital Signs: Last Vital Signs Pulse 80 06/20/24 08:02 BP 130/60 06/20/24 08:02 Pulse Ox 97 06/20/24 08:02 Oxygen Delivery Method Room Air 06/20/24 08:02 BMI result Body Mass Index 24.2 Const General: cooperative, healthy appearing and comfortable Orientation/consciousness: oriented to person Eyes Pupils: Equal, round and reactive pupils present Neuro Other: - Appearance: Alert, responsive, good eye contact, soft voice. - Mood and Affect: Generally stable, appropriate emotional responses. - Sensorium and Orientation: Oriented to person and context. - Intellect/Cognition: Attention maintained, memory issues were noted. - Thought Process: Logical and coherent, normal speech rate. 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 If his symptoms, such as leaning to side or rigidity, worsen- consider PT eval & tx and/or trial of L-dopa. We discussed considering reducing the cogentin dosage to evaluate its impact on urinary incontinence, such as risk for retention as well as worsening cognitive function. They will discuss with psychiatrist. Potential for prostate issues were identified as a possible contributor to urinary incontinence, recommending a urology consult if symptoms persist. Exploring sensory loss as a possible reason for changes in taste preferences was suggested. Due to recurring yet managed facial cellulitis, maintaining current topical treatment is advised. I emphasized follow-up visits and the importance of monitoring any changes in behavior and cognition. Patient was informed and verbally consented to the use of an ambient scribe for clinic note documentation during this visit. Patient Instructions Monitor changes in behavior and cognition, noting any new or worsening symptoms. - Maintain current facial cellulitis treatment regimen. - Consider a reduction in anticholinergic medication if advised by your psychiatrist. - Follow up with the psychiatrist every three months. - Schedule a urology consultation if urinary symptoms persist. - Observe for sensory changes in taste and smell. - Return for re-evaluation in six months or sooner if concerns arise. Coding Level of Care Code Est Pt Level 4 (50315) Diagnoses Extrapyramidal syndrome G25.9 Coarse tremors G25.2 Cognitive disorder F09
== END 2024-06-20 08:43 | disposition home or self-care (01) ==
PROVIDERS: PCP Internal Medicine; Visit Provider Nurse Practitioner Family
DX: G25.9 Extrapyramidal and movement disorder, unspecified (principal); R41.89 Other symptoms and signs involving cognitive functions and awareness
CPT/HCPCS: 99214

== ENCOUNTER → 2024-06-20 07:55 | Outpatient (BNVA) | payer MEDICARE, MEDICAID, SELFPAY | PROVIDERS: PCP Internal Medicine; Visit Provider Nurse Practitioner Family | DX: G25.9 Extrapyramidal and movement disorder, unspecified (principal); G25.2 Other specified forms of tremor; F09 Unspecified mental disorder due to known physiological condition | CPT/HCPCS: 99212 ==

== ENCOUNTER 2024-12-21 09:21 | Outpatient (AMB) | payer MEDICARE, MEDICAID, SELFPAY ==
[2024-12-21 09:28] VITALS: BP 134/70; PULSE 67; O2SAT 97; BMI 23.6
--- NOTE | 2024-12-21 09:28 | A.OFFVIS_ITS ---
Vital Signs 12/21/24 09:28 Height 5 ft 8 in Weight 155 lb BMI 23.6 BP 134/70 Blood Pressure Location Lt brachial Position Sitting Pulse 67 Pulse Source Pulse Oximeter Pulse Oximetry (%) 97 Oxygen Delivery Method Room Air Intake Visit Reasons: 6 mo follow up Intake Note: Patient presents follow up cognitive. Vehicle And Equipment Cleaner Required: No Accompanied by: Self / Same As Patient Allergies No Known Allergies Allergy (Verified 12/21/24 09:30) HPI Comments Details: A 74-year-old male is presenting with cognitive difficulties. Patient is accompanied by his long-time nurse from [facility], who helps to provide his tory. The recurrent facial cellulitis has resolved. With improvement following antibiotic and eczema treatment per [facility] ID Since the last visit, psychiatry has stopped the Cogentin. Since stopping the Cogentin, staff reports that the patient is not leaning over as much, and urinary symptoms have improved, and his cognition has improved.? They have not noticed any increase in involuntary movements.? No notable tremor at this time. Mood is stable. Denies stiffness, interval falls Patient continues to attend his day program, which he enjoys. 06/20/2024, previous HPI: Noted symptoms include changes such as leaning and unusual eating habits. Occasional urinary incontinence occurs during the day over the past two years- patient states occurs without warning- he does not have a urologist. Denies significant neurological symptoms. No hallucinations or swallowing issues. Behavioral changes include altered eating habits , such as not wanting to eat pizza for no apparent reason despite this being his favorite food. Current medications include stable regimen of risperidone and cogentin. [facility] Medical History Hyperlipidemia Osteopenia Major depression Coarse tremors Esophagitis Anxiety Eczema Developmental delay, borderline Cognitive disorder Extrapyramidal syndrome Family History Mother Alzheimer disease Father Lung cancer Social History Household Members: Other Alcohol intake: never Patient Tobacco Use Status: Never used Tobacco Physical Exam Vital Signs: Last Vital Signs Pulse 67 12/21/24 09:28 BP 134/70 12/21/24 09:28 Pulse Ox 97 12/21/24 09:28 Oxygen Delivery Method Room Air 12/21/24 09:28 BMI result Body Mass Index 23.6 Const General: cooperative, healthy appearing and comfortable Orientation/consciousness: oriented to person Eyes Pupils: Equal, round and reactive pupils present Neuro Other: Alert, oriented, responding appropriately. 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 May continue risperidone 0.5 mg daily per Psychiatry. Continue to monitor mood. Continue to monitor extrapyramidal symptoms, tremor, rigidity, bradykinesia. Continue to engage in regular cognitive stimulating activities and physical activities. Pt to follow-up in 6 months or sooner prn. Coding Level of Care Code Est Pt Level 4 (47144) Diagnoses Extrapyramidal syndrome G25.9 Coarse tremors G25.2 Cognitive disorder F09
== END 2024-12-21 10:12 | disposition home or self-care (01) ==
LOC: HO.HSMS 09:21
PROVIDERS: PCP Internal Medicine; Visit Provider Nurse Practitioner Family
DX: G25.9 Extrapyramidal and movement disorder, unspecified (principal); G25.2 Other specified forms of tremor; R41.89 Other symptoms and signs involving cognitive functions and awareness
CPT/HCPCS: 99214

== ENCOUNTER → 2024-12-21 09:21 | Outpatient (BNVA) | payer MEDICARE, MEDICAID, SELFPAY | PROVIDERS: PCP Internal Medicine; Visit Provider Nurse Practitioner Family | DX: G25.9 Extrapyramidal and movement disorder, unspecified (principal); G25.2 Other specified forms of tremor; F09 Unspecified mental disorder due to known physiological condition | CPT/HCPCS: 99212 ==